=== PATIENT | male | born 1985 | race Caucasian/White ===

== ENCOUNTER → 2025-09-25 03:48 | Outpatient (CLI) | payer OTHER, SELFPAY ==
--- NOTE | 2025-09-25 | DI.RAD_ITS ---
Exam(s) XR THORACIC SPINE COMPLETE EXAM: XR THORACIC SPINE COMPLETE CLINICAL HISTORY: [id number],MID BACK PAIN. TECHNIQUE: 2D digital imaging was performed. COMPARISON: No exams were available for comparison FINDINGS: 3 views No evidence of fracture nor listhesis. No significant disc space narrowing. No scoliosis. No abnormal widening of the paraspinal lines. Bone density normal. No osseous lesions. IMPRESSION: No acute osseous findings in the thoracic spinal column. DATA REPOSITORY: RADIATION DOSE DELIVERED:
--- NOTE | 2025-09-25 | DI.RAD_ITS ---
Exam(s) XR LUMBAR SPINE AP, LAT EXAM: XR LUMBAR SPINE AP, LAT CLINICAL HISTORY: [id number],LOW BACK PAIN. TECHNIQUE: 2D digital imaging was performed. COMPARISON: No exams were available for comparison FINDINGS: 3 views There is variant anatomy here in that there are 6 non rib-bearing lumbar vertebrae. There is no evidence of fracture or listhesis nor pars defects. All the disc spaces exhibit normal height. Facet joints unremarkable. Sacroiliac joints appear unremarkable. Mild scoliosis convex left. This may be related to positioning. Bone density normal. No osseous lesions. IMPRESSION: No acute osseous findings in the lumbosacral spine. Variant anatomy as described above DATA REPOSITORY: RADIATION DOSE DELIVERED:
--- NOTE | 2025-09-25 | DI.RAD_ITS ---
Exam(s) XR CERVICAL SPINE COMP 4-5V EXAM: XR CERVICAL SPINE COMP 4-5V CLINICAL HISTORY: [id number],CHRONIC NECK PAIN,CERVICALGIA,M54.2. TECHNIQUE: 2D digital imaging was performed. COMPARISON: No exams were available for comparison FINDINGS: Five views No evidence fracture, listhesis, nor offset of the spinal laminar line All the disc spaces exhibit normal height. No cervical ribs. No significant facet arthropathy. Oblique views reveal no Luschka joint osteophytes. IMPRESSION: No significant radiograph findings in the cervical spinal column. DATA REPOSITORY: RADIATION DOSE DELIVERED:
== END ==
PROVIDERS: PCP Nurse Practitioner; Visit Provider Nurse Practitioner
DX: M54.2 Cervicalgia (principal)
CPT/HCPCS: 72050; 72072; 72100